=== PATIENT | female | born 2005 | race Caucasian/White ===

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

== ENCOUNTER 2025-03-25 08:53 | Emergency (ER) | payer OTHER ==
[~2025-03-25] VITALS: Ht 162.6 cm; Wt 47.6 kg
[~2025-03-25 08:53] MED LIST changes: +BIRTH CONTROL; -Bupivacaine 0.5% HCl 5 MG/ML 30MLVIAL ONE; -Bupivacaine 0.5% W/EPI 1:200000 SDV 30 ML Vial ONE
[2025-03-25 09:53] VITALS: BP 143/82
[2025-03-25] MEDS ORDERED: Veetids 500500 MG PO (09:58)
[2025-03-25] MEDS ORDERED: Dexamethasone Sod Phos 10 MG/ML 1ML VIAL PO ONE (10:00)
== END 2025-03-25 10:03 | disposition home or self-care (01) ==
LOC: ER 08:53
DX: J02.9 Acute pharyngitis, unspecified (principal); F17.290 Nicotine dependence, other tobacco product, uncomplicated; Z59.89 Other problems related to housing and economic circumstances
CPT/HCPCS: 99282; J1100

== ENCOUNTER 2025-03-28 04:40 | Emergency (ER) | payer OTHER ==
[~2025-03-28] VITALS: Ht 160 cm; Wt 47.6 kg
[~2025-03-28 04:40] MED LIST changes: +Veetids 500500 MG PO
[2025-03-28] MEDS ORDERED: Lidocaine 2% Viscous Soln 15 ML UDC PO ONE ×2 (06:20→08:00)
[2025-03-28] MEDS ORDERED: ONDA4ODT MM (08:14)
[2025-03-28] MEDS ORDERED: OXYC5 PO (08:14)
[2025-03-28] MEDS ORDERED: VALA500 PO (08:14)
[2025-03-28] MEDS ORDERED: Ondansetron 4 MG SoluTab SL ONE (08:15)
[2025-03-28] MEDS ORDERED: NARCAN4 M1 (08:20)
[2025-03-28 08:23] VITALS: BP 129/86
== END 2025-03-28 08:33 | disposition home or self-care (01) ==
LOC: ER 04:40
DX: K12.1 Other forms of stomatitis (principal); Z88.0 Allergy status to penicillin
CPT/HCPCS: 99282; A9270; J7512